=== PATIENT | male | born 1990 | race Caucasian/White ===

== ENCOUNTER → 2018-01-01 | Outpatient (CLI) | payer OTHER | LOC: M RAD 13:20 | DX: N63.0 Unspecified lump in unspecified breast (principal) | CPT/HCPCS: 77066 ==

== ENCOUNTER 2020-10-13 17:32 | Emergency (ER) | payer OTHER ==
[~2020-10-13] VITALS: Ht 177.8 cm; Wt 81.4 kg
[2020-10-13] MEDS ORDERED: LISI-898 PO (17:45)
--- NOTE | 2020-10-13 18:03 | REP ---
INDICATION: PAIN COMPARISON: None. TECHNIQUE: AP, lateral, bilateral oblique views. FINDINGS: Small old fracture at the medial malleolus. No acute fracture or dislocation. No significant swelling. No subcutaneous emphysema or foreign body. IMPRESSION: No acute fracture or dislocation. Old medial malleolus fracture suggested. <Electronically signed by Isaiah Mckeon > 10/13/20 9210
[2020-10-13 22:23] VITALS: BP 113/64
== END 2020-10-13 22:24 | disposition home or self-care (01) ==
LOC: M ED 17:32
DX: S93.401A Sprain of unspecified ligament of right ankle, initial encounter (principal); X50.0XXA Overexertion from strenuous movement or load, initial encounter; Y92.9 Unspecified place or not applicable; Y93.9 Activity, unspecified; Y99.9 Unspecified external cause status; I10 Essential (primary) hypertension; Z79.899 Other long term (current) drug therapy